=== PATIENT | female | born 1985 | race Caucasian/White ===

== ENCOUNTER 2019-04-27 10:26 | Outpatient (REF) | payer OTHER, SELFPAY ==
[2019-04-27 13:11] LABS: Abs Immature Grans 0.02 k/cumm (0.0-0.09); Absolute Basophil Count 0.04 k/cumm (0.0-0.2); Absolute Eosinophil Count 0.09 k/cumm (0.0-0.7); Absolute Lymphocyte Count 1.58 k/cumm (1.2-3.4); Absolute Monocyte Count 0.44 k/cumm (0.11-0.7); Absolute Neutrophil Count 5.71 k/cumm (1.2-6.7); Basophils % 0.5; Eosinophils % 1.1; HCT 39.7 % (36.0-46.0); HGB 12.9 g/dL (12.0-15.5); Immature Grans % 0.3; Lymphocytes % 20.1; Mean Corp. HGB Concentration 32.5 g/dL (32.0-36.0); Mean Corpuscular Hemoglobin 29.5 pg (27.0-33.0); Mean Corpuscular Volume 90.6 fL (80-95); Monocytes % 5.6; Neutrophils % 72.4; Platelet Count 301 x1000/uL (130-400); RBC 4.38 m/cumm (4.00-5.20); RBC Distribution Width 14.9 % (11.7-14.6); White Blood Cell Count 7.88 k/cumm (4.4-10.8)
[2019-04-27 15:00] LABS: ALT 22 U/L (12-78); AST 13 U/L (15-37); Albumin 3.4 g/dL (3.4-5.0); Alkaline Phosphatase 48 U/L (46-116); Anion Gap 11.6 mmol/L (3-11); BUN 16 mg/dL (7-18); Bilirubin, Total 0.6 mg/dL (0.2-1.0); CO2 25.4 mmol/L (21.0-32.0); CREATININE 0.71 mg/dL (0.55-1.02); Calcium 8.7 mg/dL (8.5-10.1); Chloride 105 mmol/L (98-107); Glucose 80 mg/dL (70-100); Potassium 4.2 mmol/L (3.5-5.1); Sodium 142 mmol/L (136-145)
[2019-04-27 15:36] LABS: Vitamin B12 374 pg/mL (193-986)
== END 2019-04-27 10:46 ==
LOC: NCHCN 10:26
PROVIDERS: PCP Nurse Practitioner Family; Visit Provider Nurse Practitioner Family
DX: F41.8 Other specified anxiety disorders (principal)
CPT/HCPCS: 80053; 82607; 84443; 85025

== ENCOUNTER 2020-01-20 18:11 | Outpatient (REF) | payer OTHER, SELFPAY ==
--- NOTE | 2020-01-20 16:15 | PAPFT_PTH ---
PATIENT: Carol Coto LOC: REPLACED BY [facility] U#:[id number] AGE/SX: 34/F ROOM: RE01/20/[address]: Marie Fleming : 1985 BED: DIS: 01/20/2020 SPEC #: [id number] RECD: 01/21/20 12:58 STATUS: ROSLYN REMagalys #: [id number] ISABELL: 01/20/20 16:[address]: Marie Fleming DEPT: [facility] Cytology RECD BY: Carlota Apodaca ENTERED: 01/21/20 12:58 SP TYPE: PAPFT OTHR DR: Margarita Ruano Tissues: 1 - CX/ENDOCX FOR PAP SMEARS Procedures: PAP THIN PREP/[facility] Screening HPV DNA PROBE Comments: [id number]
[2020-01-20 20:56] LABS: TSH (W/Ref FT4) 2.77 uIU/mL (0.36-3.74)
== END 2020-01-20 18:31 ==
LOC: NCHCN 18:11
PROVIDERS: PCP Nurse Practitioner Family; Visit Provider Nurse Practitioner Family
DX: Z00.00 Encounter for general adult medical examination without abnormal findings (principal); F41.8 Other specified anxiety disorders; N92.0 Excessive and frequent menstruation with regular cycle; Z12.4 Encounter for screening for malignant neoplasm of cervix; Z01.419 Encounter for gynecological examination (general) (routine) without abnormal findings
CPT/HCPCS: 88142; 84443; 87624

== ENCOUNTER 2020-12-19 01:03 | Outpatient (CLI) | payer OTHER, SELFPAY ==
--- NOTE | 2020-12-19 06:45 | DI.US_ITS ---
EXAM: US PELVIS TRANSVAGINAL CLINICAL HISTORY: mid cycle bleeding,DYSFUNCTIONA UTERINE BLEEDING,N93.8. TECHNIQUE: Transabdominal and transvaginal pelvic ultrasound was performed using standard protocol. COMPARISON: [facility] OB ULTRASOUND from 11/02/2013 FINDINGS: KIDNEYS: Kidneys are symmetric in size. No evidence of renal calculi. No evidence of hydronephrosis. No renal mass or cyst identified. UTERUS: Position: Anteverted. Size: 9.1 long by 3.9 AP by 6.6 transverse cm Endometrium: 0.5 cm. Normal for patient's menstrual status. Myometrium: Unremarkable. Cervix: Unremarkable. OVARIES: Right: 3.5 x 1.3 x 1.6 cm Cyst or mass: Small functional cysts are present. Left: 2.8 x 1.7 x 1.9 cm Cyst or mass: Small functional cysts are present. DOPPLER: Color: Symmetric and uniform flow to both ovaries. No hyperemia. Duplex: Normal ovarian arterial waveforms visualized. CUL-DE-SAC: Free fluid: None. Other: None. IMPRESSION: 1. Normal sonographic appearance of the kidneys. 2. Normal-appearing uterus with endometrial stripe within normal limits. 3. Unremarkable bilateral ovaries. DATA REPOSITORY:
== END 2020-12-19 01:04 ==
PROVIDERS: PCP Nurse Practitioner Family; Visit Provider Obstetrics & Gynecology
DX: N93.8 Other specified abnormal uterine and vaginal bleeding (principal); N92.3 Ovulation bleeding
CPT/HCPCS: 76830; 76856

== ENCOUNTER 2021-08-31 10:20 | Outpatient (REF) | payer OTHER, SELFPAY ==
[2021-09-03 15:20] LABS: Chlamydia Result Negative (Negative); GC Result Negative (Negative)
== END 2021-08-31 10:21 | disposition home or self-care (01) ==
LOC: LBN 10:20
PROVIDERS: PCP Nurse Practitioner Family; Visit Provider Obstetrics & Gynecology
DX: Z11.3 Encounter for screening for infections with a predominantly sexual mode of transmission (principal)
CPT/HCPCS: 87491; 87591

== ENCOUNTER 2025-09-01 09:04 | Outpatient (REF) | payer OTHER, SELFPAY ==
--- NOTE | 2025-09-01 08:00 | PAPFT_PTH ---
PATIENT: Carol Coto LOC: [facility] U#:[id number] AGE/SX: 39/F ROOM: RE09/01/[address]: Marie Fleming : 1985 BED: DIS: 09/01/2025 SPEC #: [id number] RECD: 09/01/25 18:06 STATUS: ROSLYN SARAH #: [id number] ISABELL: 09/01/25 08:[address]: Marie Fleming DEPT: COUNTS INCLUDE 234 BEDS AT [facility] Cytology RECD BY: Carlota Apodaca ENTERED: 09/01/25 18:07 SP TYPE: PAPFT OTHR DR: Margarita Ruano Tissues: 1 - CX/ENDOCX FOR PAP SMEARS Procedures: PAP THIN PREP/[facility] Screening HPV DNA PROBE Comments: [id number] (HPV 16 & 18/45)
== END 2025-09-01 09:05 | disposition home or self-care (01) ==
LOC: NCHCN 09:04
PROVIDERS: PCP Nurse Practitioner Family; Visit Provider Nurse Practitioner Family
DX: Z12.4 Encounter for screening for malignant neoplasm of cervix (principal)
CPT/HCPCS: 88142; 87624